=== PATIENT | male | born 1975 | race Caucasian/White ===

== ENCOUNTER 2023-08-24 07:00 | Day surgery (SDC) | payer OTHER, SELFPAY ==
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
--- NOTE | 2023-08-24 07:14 | H&P.OPEN ---
HPI - General HPI Narrative EMIL HORNE, is a 48 M who presents for colonoscopy due to change in bowel habits. Patient denies any further diarrhea since last office visit states his stools are still softer than normal but no explosive diarrhea as he was previously having. Patient is still interested if his mold exposure had any cause to this. Otherwise patient denies any chronic abdominal pain/nausea/vomiting/reflux. office visit 06/03/23 HPI HPI: 48-year-old male presents due to change in bowel habits. Patient states he was living in [place] from till end of March when his daughter was born and states that apartments actually had a lot of issues with mold states that he and his were exposed to toxic mold. Patient states that soon as a got to the hospital for delivery and they are there for 4 days they started having loose explosive stools. Patient states he did get some mycotoxin test that said that he had mold in his GI tract per stool and urine samples. Patient denies having regular stool studies done at that time. Patient states now he has loose stools daily however states it really changes in what he eats he does occasionally have some formed stools. Patient no longer has explosive diarrhea. Patient does have reflux but is diet controlled may have it once a week. Otherwise patient denies any chronic abdominal pain/nausea/vomiting/reflux. Patient denies any previous colonoscopy. Patient denies any family history of colon cancer. [facility] Medical History (Updated 08/19/23 @ 12:56 by Yanci Nieves) Anxiety Arthritis Back problem Cancer CPAP (continuous positive airway pressure) dependence Depression Depression with anxiety Gastric reflux Heartburn History of edema History of vertigo Low iron Migraine headache Non-smoker Restless legs Rheumatoid arthritis Sleep apnea Spinal stenosis Syncope Tinnitus Wears glasses Home Medications fluticasone propionate 50 mcg/actuation nasal spray,suspension (Flonase Allergy Relief) 1 spray intranasal DAILY 06/03/23 [History Last Taken Unknown] hydroxyzine HCl 25 mg tablet 25 mg PO BID PRN dizziness or vertigo 06/03/23 [History Last Taken Unknown] sertraline 25 mg tablet 50 mg PO DAILY 06/03/23 [History Last Taken Unknown] Allergy/AdvReac Type Severity Reaction Status Date / Time No Known Allergies Allergy Unverified 06/03/23 14:00 Family History Mother Skin cancer Arthritis Father Arthritis Skin cancer Hypertension Surgical History History of knee surgery Social History (Updated 06/03/23 @ 13:59 by Marilou Tinsley) Smoking Status: Never smoker alcohol intake: current substance use type: does not use Past Medical/Surgical History Planned Operation Planned Operative Procedure/s: CSCOPE Previous Hospitalizations/Surgeries HX Hospitalizations: No Any Problems With Anesthesia: No You/Your Family Experience Fever (Hyperthermia) With Anes: No Cholinesterase deficiency: No Cardiovascular Hx of Irregular Heartbeat and/or Afib: No Hx Heart Attack: No Hx Congestive Heart Failure: No Hx Rheumatic Fever: No Hx Hypertension: No Hx Internal Defibrillator: No Hx Pacemaker: No Hx Pain in Legs when Walking/Leg Cramps: No Respiratory HX of Shortness of Breath: No Hx Chronic Obstructive Pulmonary Disease (COPD): No Hx Asthma: No Hx Emphysema: No Hx Sleep Apnea: Yes CPAP: Yes BIPAP: No Hx Respiratory Tract Infection/Cold (presently): No Result (for STOP score): Positive Smoking Status: Never smoker Gastrointestinal Hx Gastrointestinal Bleed: No Hx Ulcer: No Neurological Hx Seizures: No Hx Multiple Sclerosis: No Hx Parkinson's Disease: No Hx Head/Neck Injury: No Hx Headaches: No Hx Back Injury/Pain: No Does patient have nerve stimulator: No Blood Disorder Hx Hepatitis: No Hx Anemia: No Genitourinary Hx Renal Disease: No Hx Dialysis: No Musculoskeletal Hx Arthritis: Yes Hx Gout: No Endocrine Hx Diabetes: No Thyroid Disease: No Psycho/Social Hx Anxiety: No Hx Depression: No Hx Dementia: No Miscellaneous Hx Cancer: No Allergies No Known Allergies Allergy (Unverified 06/03/23 14:00) Discharge Is Pt Admitted From a Senior Living, or a [facility]: Yes After D/C, Where Do you Plan to Go: Return Home Physical Exam Const alert, oriented x3 and no apparent distress HEENT normocephalic and head/scalp atraumatic Resp normal respiratory effort Cardio regular rate GI soft to palpation and non-tender; Negative for non-distended Palpation: Negative for guarding Extremity no clubbing, cyanosis or edema Skin no rashes or lesions noted Neuro CN's II-XII intact bilaterally Psych mental status grossly normal Assessment & Plan Assessment/Plan (1) Change in bowel habits: Surgery Risks - Colonoscopy I discussed with the patient the risks of the procedure: Yes Risks Include but are not Limited To: Will also plan for random biopsies. Risks include but are not limited to: Bleeding, perforation requiring further surgery, inability to complete colonoscopy requiring barium enema.
[2023-08-24] MEDS: Lactated Ringers 1,000 ML 15 ML IV (07:31)
[2023-08-24 07:34] VITALS: BP 143/88; PULSE 70; RESP 18; TEMP 36.6; O2SAT 98; BMI 46.9
--- NOTE | 2023-08-24 09:00 | COLBX_PTH ---
PATHOLOGY RESULTS PATIENT: EMIL HORNE LOC: EN U#:[id number] AGE/SX: 48/M ROOM: RE08/24/[address]: Dr. Isis Tomas MD : 1975 BED: DIS: 08/24/2023 SPEC #: [id number] RECD: 08/24/23 12:32 STATUS: EDD GLENDY #: [id number] LEVI: 08/24/23 09:[address]: Isis Tomas DEPT: SURGICAL PATHOLOGY RECD BY: Julieta Dodson ENTERED: 08/24/23 12:33 SP TYPE: COLON BX OT DR: [facility] Tissues: Cecum, NOS COLON BIOPSY Descending colon Procedures: Surgery Specimen Level IV HEADER OPERATION: Colonoscopy with biopsy PRE-OP DIAGNOSIS: Change in bowel habits TISSUE SUBMITTED: A - Cecum polyp biopsy, B - Random colon biopsy, C - Descending colon polyp biopsy MICROSCOPIC DIAGNOSIS A. Cecum polyp, biopsy: Fragments of tubular adenoma. B. Colon, random biopsy: A fragment of colonic mucosa, no pathologic diagnosis. C. Descending colon polyp, biopsy: Fragments of tubular adenoma. STEPHANIE:davis 08/25/2023 MICROSCOPIC DESCRIPTION Slides are reviewed. GROSS DESCRIPTION A - Received in fixative is one container labeled with the patient's name and designated cecum polyp biopsy. The specimen consists of multiple irregular fragments of light davalos soft tissue that in aggregate measure 1.0 x 0.5 x 0.1 cm. The specimen is totally submitted in one cassette. B - Received in fixative is one container labeled with the patient's name and designated random colon biopsy. The specimen consists of one irregular fragment of light davalos soft tissue that measures 0.5 x 0.2 x 0.1 cm. The specimen is totally submitted in one cassette. C - Received in fixative is one container labeled with the patient's name and designated descending colon polyp biopsy. The specimen consists of two irregular fragments of light davalos soft tissue that in aggregate measure 0.3 x 0.3 x 0.1 cm. The specimen is totally submitted in one cassette. / STEPHANIE:davis 08/24/2023 TC:3 [facility]: [id number] x3
--- NOTE | 2023-08-24 09:33 | OP.COLON_ITS ---
Patient Name: Rudy Morrison Procedure Date: 08/24/2023 9:00 AM Date of : 1975 Age: 48 Procedure: Colonoscopy Indications: Change in bowel habits Providers: Isis Tomas MD Referring MD: Ethan Burgess MD Medicines: Monitored Anesthesia Care Patient Profile: This is a 48 year old male. Last Colonoscopy: none. The patient's first colonoscopy is today. Complications: No immediate complications. Procedure: Pre-Anesthesia Assessment: - Prior to the procedure, a History and Physical was performed, and patient medications and allergies were reviewed. The patient's tolerance of previous anesthesia was also reviewed. The risks and benefits of the procedure and the sedation options and risks were discussed with the patient. All questions were answered, and informed consent was obtained. Prior Anticoagulants: The patient has taken no anticoagulant or antiplatelet agents. ASA Grade Assessment: Per anesthesia. After reviewing the risks and benefits, the patient was deemed in satisfactory condition to undergo the procedure. After I obtained informed consent, the scope was passed under direct vision. Throughout the procedure, the patient's blood pressure, pulse, and oxygen saturations were monitored continuously. The Colonoscope was introduced through the anus and advanced to the cecum, identified by the appendiceal orifice, ileocecal valve and palpation. The colonoscopy was performed without difficulty. The patient tolerated the procedure well. The quality of the bowel preparation was good. Scope In: 9:07:39 AM Scope Withdrawal Time 0 hours 10 minutes 35 seconds Scope Out: 9:27:02 AM Total Procedure Duration Time 0 hours 19 minutes 23 seconds Findings: The perianal and digital rectal examinations were normal. Two sessile polyps were found in the descending colon and cecum. The polyps were 4 to 6 mm in size. These polyps were removed with a cold biopsy forceps. Resection and retrieval were complete. Random biopsy was taken with a cold forceps for histology. The exam was otherwise without abnormality. Impression: - Two 4 to 6 mm polyps in the descending colon and in the cecum, removed with a cold biopsy forceps. Resected and retrieved. - The examination was otherwise normal. - Biopsies were taken with a cold forceps for histology. Recommendation: - Discharge patient to home. - Resume previous diet. - Continue present medications. - Await pathology results. - Repeat colonoscopy in 5 years for surveillance based on pathology results. Procedure Code(s): --- Professional --- 30846, PT, Colonoscopy, flexible; with biopsy, single or multiple Diagnosis Code(s): --- Professional --- D12.4, Benign neoplasm of descending colon D12.0, Benign neoplasm of cecum R19.4, Change in bowel habit CPT copyright 2021 [employer]. All rights reserved. The codes documented in this report are preliminary and upon harbor tug captain review may be revised to meet current compliance requirements. MD Isis Roland MD 08/24/2023 9:32:49 AM This report has been signed electronically. Number of Addenda: 0 Note Initiated On: 08/24/2023 9:00 AM
--- NOTE | 2023-08-24 09:33 | OP.CCLET_ITS ---
08/24/2023 Ethan Burgess MD [address] [place] [address] Re : Colonoscopy procedure for Rudy Morrison Dear Dr. Burgess This procedure was performed on Thursday, August 24, 2023. My impressions and recommendations are as follows: Impressions : - Two 4 to 6 mm polyps in the descending colon and in the cecum, removed with a cold biopsy forceps. Resected and retrieved. - The examination was otherwise normal. - Biopsies were taken with a cold forceps for histology. Recommendations : - Discharge patient to home. - Resume previous diet. - Continue present medications. - Await pathology results. - Repeat colonoscopy in 5 years for surveillance based on pathology results. My findings are described in the full procedure note, which is enclosed. If I can be of further assistance, please feel free to contact me at Doctor phone number(s): , Work: . Sincerely, MD Isis Roland MD 08/24/2023 9:32:49 AM This report has been signed electronically.
[2023-08-24 09:34] VITALS: BP 104/69; BP 143/88; PULSE 66; RESP 18; TEMP 36; O2SAT 93
[2023-08-24 09:40] VITALS: BP 109/72; BP 143/88; PULSE 66; RESP 18; O2SAT 93
[2023-08-24 09:45] VITALS: BP 105/65; BP 143/88; PULSE 65; RESP 18; O2SAT 97
[2023-08-24 09:49] VITALS: BP 115/70; BP 143/88; PULSE 64; RESP 18; TEMP 36.8; O2SAT 94
[2023-08-24 09:58] VITALS: BP 143/88
== END 2023-08-24 10:09 | disposition home or self-care (01) ==
LOC: EN 07:05 → AC 07:06
PROVIDERS: Visit Provider Surgery
PROC: 0DJD8ZZ Inspection of Lower Intestinal Tract, Via Natural or Artificial Opening Endoscopic (ICD-10-PCS; CPT 45378; principal; 2023-08-24 08:55)
DX: D12.0 Benign neoplasm of cecum (principal); D12.4 Benign neoplasm of descending colon
CPT/HCPCS: 45380; 88305; J7120; J2405